=== PATIENT | male | born 1960 | race Caucasian/White ===

== ENCOUNTER 2019-09-18 09:20 | Emergency (ER) | payer BC ==
[~2019-09-18] VITALS: Ht 193 cm; Wt 144.2 kg
[2019-09-18 09:35] VITALS: BP_SYST 143
--- NOTE | 2019-09-18 10:15 | NUR ---
Patient to ER bed 7 to gown for evaluation. Side rails up.
--- NOTE | 2019-09-18 11:00 | NUR ---
Patient presented to ER C/O left wrist pain. Patient A&ox4, ambulatory to ER, skin pink and warm, pain 10/, denies trauma, denies N/V/D. Patient states pain statrted 1 week ago, no trauma, denies injury.
--- NOTE | 2019-09-18 11:05 | NUR ---
ER at bedside examining patient.
--- NOTE | 2019-09-18 11:10 | NUR ---
Pt requests pain medication. Dr. Torres notified.
[2019-09-18] MEDS ORDERED: MORPHINE 4 MG/ML INJ. SYRINGE IM ONE (11:15)
--- NOTE | 2019-09-18 12:18 | NUR ---
Patient given written and verbal discharge instructions and verbalizes understanding. ER MD discussed with patient the results and treatment provided. Patient in stable condition. ID arm band removed. Rx of Tramadol given. Patient educated on pain management and to follow up with PMD. Pain Scale 3/10 tolerable for patient . Opportunity for questions provided and answered. Medication side effect fact sheet provided.
[2019-09-18 12:23] VITALS: BP_SYST 138
== END 2019-09-18 12:18 | disposition home or self-care (01) ==
LOC: SED 09:20
DX: S63.502A Unspecified sprain of left wrist, initial encounter (principal); X50.0XXA Overexertion from strenuous movement or load, initial encounter; Y93.89 Activity, other specified; Y92.89 Other specified places as the place of occurrence of the external cause; Y99.8 Other external cause status
CPT/HCPCS: 73110; 96372; 99283; J2270